=== PATIENT | female | born 1970 | race Caucasian/White ===

== ENCOUNTER → 2019-10-23 | Outpatient (REF) ==
--- NOTE | 2019-10-23 12:47 | Diagnostic Imaging Report ---
INDICATION: Acute left arm and shoulder pain. TIME OF EXAM: 11:48 AM 2 views of left humerus were obtained. Alignment at the shoulder and elbow appears normal. The humerus appears intact. No fractures are seen. IMPRESSION: No acute abnormality is detected. Dictated by: Dictated on workstation # [id number]
--- NOTE | 2019-10-23 12:48 | Diagnostic Imaging Report ---
INDICATION: Acute left shoulder pain. TIME OF EXAM: 11:51 AM Multiple views left shoulder were obtained. Glenohumeral and acromioclavicular alignment are normal. Acromial humeral space is normal. No fracture or dislocation is seen. IMPRESSION: No acute bony abnormality is detected. Dictated by: Dictated on workstation # [id number]
== END | disposition home or self-care (01) ==
LOC: OCC 11:09
PROVIDERS: ATTEND Nurse Practitioner Family
CPT/HCPCS: 73030; 73060